=== PATIENT | male | born 1940 | race Caucasian/White ===

== ENCOUNTER 2017-08-11 18:36 | Inpatient (IN) | payer MEDICARE, BC ==
[~2017-08-11] VITALS: Ht 182.9 cm; Wt 77.7 kg
--- NOTE | ~2017-08-11 | HP ---
History And Physical [place] [id number] [facility] [place]. [address] NAME: ALIVIA ALVARADO : 44 STATUS : ADM IN [facility]#: [id number] AGE: 76 ADM/REG DATE : 08/11/17 MR#: [id number] REPORT SERV DATE: 08/11/17 DICTATED BY: BRI BARRAZA DATE: 08/11/17 REPORT STATUS : Draft TRANSCRIBED BY: MODRafia DATE: 08/11/17 DATE OF ADMISSION: 08/11/2017 HISTORY OF PRESENT ILLNESS: The patient is very pleasant, 76-year-old male, who presented to [facility] Emergency Room with a chief complaint of abdominal pain, which started today around 12:30 p.m. The patient said it was sharp pain in the epigastric area and mid abdominal area with some radiation to the back. Pain was very severe. The patient had nausea and he had several episodes of vomiting. He denies any chest pain. No shortness of breath. No fever. No rash. No headaches. REVIEW OF SYSTEMS: All 14-point review of systems done and negative except what is stated in the history of present illness. Currently in the emergency room, he was given pain medications and IV fluids and his abdominal pain improved. PAST MEDICAL HISTORY: 1. Known for history of left-sided nephrectomy for history of kidney cancer in 2013. 2. Chronic kidney disease stage III with a baseline creatinine in the range of 1.4 to 1.8. 3. History of urinary bladder cancer, status post tumor removal in 2013 different than the kidney cancer. 4. History of left groin stent placement. 5. History of hypertension. 6. History of hypercholesterolemia. PAST SURGICAL HISTORY: Includes only left-sided nephrectomy and history of right groin stent. SOCIAL HISTORY: The patient quit smoking three years ago, used to smoke half pack a day. The patient sometimes uses beer for alcohol use, but not in excessive amount, and for last seven days, he did not have any alcohol. The patient denies any use of recreational drugs. The patient's is at the bedside. The patient was in the process of moving from [place] to [facility]. They were actually packing when his pancreatitis started. FAMILY HISTORY: His mother of a breast cancer and father of a brain tumor. ALLERGIES: THE PATIENT IS ALLERGIC AMOXICILLIN. HOME MEDICATIONS: Include Artificial Tears 0.3 mL ophthalmic drops as needed for dry eyes, aspirin 81 mg a day, Coenzyme Q 100 mg a day, fenofibrate 135 mg a day, Proscar 5 mg daily, pravastatin 20 mg daily, propranolol 80 mg p.o. b.i.d., spironolactone with HCTZ one tablet daily, Flomax 0.4 mg a day, and vitamin D 100 mg a day. PHYSICAL EXAMINATION: GENERAL: Well-nourished, well-developed male, not in acute distress, resting quietly. VITAL SIGNS: Blood pressure 118/64, temperature 98.4, heart rate 58, respiratory rate 18, History And Physical [address] [address] NAME: ALIVIA ALVARADO : 44 STATUS : ADM IN [facility]#: [id number] AGE: 76 ADM/REG DATE : 08/11/17 MR#: [id number] REPORT SERV DATE: 08/11/17 DICTATED BY: BRI BARRAZA DATE: 08/11/17 REPORT STATUS : Draft TRANSCRIBED BY: COLLEEN DATE: 08/11/17 and oxygen saturation 98 on room air. HEENT: Head atraumatic and normocephalic. Conjunctivae are clear. Pupils are equal and reactive to light and accommodation. Extraocular muscles are intact. NECK: Supple. Trachea is midline. No supraclavicular or cervical lymphadenopathy. LUNGS: Clear to auscultation bilaterally with slightly decreased respiratory effort. CARDIOVASCULAR SYSTEM: Regular rate and rhythm. Point of maximal impulse not displaced. ABDOMEN: Soft. There is tenderness to palpation in the epigastric area. There is no guarding. No rebound. EXTREMITIES: No clubbing, cyanosis, or edema. SKIN: Normal color, slightly decreased turgor. PSYCHIATRIC: Normal mood and affect. NEUROLOGIC: Awake, alert, and oriented in time, place, and person. Muscle strength is 5/5 bilaterally in upper and lower extremities. LABORATORY RESULTS: White count 14.1, hemoglobin 15.7, hematocrit 46.3, and platelet count 219. Sodium 139, potassium 4.3, chloride 106, carbon dioxide 22, BUN 28, creatinine 1.6, blood sugar 118, calcium 9.6, total bilirubin 1.2, alkaline phosphatase 43, ALT is 48, AST 60, and lipase 69845. Troponin less than 0.02. Urinalysis did not show any evidence of urinary tract infection. Lactate 1.1. CT of abdomen and pelvis without contrast, which was done in the emergency room showed acute on chronic pancreatitis with peripancreatic edema around the head, neck, and body. No organized peripancreatic fluid collection, status post left nephrectomy. No suspicious soft tissue in the resection bed. Mildly prominent peripancreatic lymph nodes, likely reactive. Normal appendix. Mild count colonic diverticulosis without evidence of diverticulitis. ASSESSMENT: This is a very pleasant, 76-year-old male with a past medical history of kidney cancer, status post left nephrectomy, chronic kidney disease, history of benign prostatic hypertrophy who presented with: 1. Acute pancreatitis. 2. Chronic kidney disease. 3. Mild sinus bradycardia with a rate of 45 on beta-felisha. PLAN: 1. We will admit the patient to cardiac telemetry bed for his acute pancreatitis. We will provide the patient with good IV fluid hydration to provide good perfusion to the pancreas as well as we will keep the patient on clear liquid diet and give also good pain control and reasonable nausea control as well, put the patient on Protonix IV. In the same time, we will check the patient's fasting lipid profile, and we will also order ultrasound of the gallbladder and the pancreas as well as I will consult Gastroenterology for further evaluation of the patient's pancreatitis and to see what could cause the patient's pancreatitis. My partner, hospitalist, also may consider MRI on the pancreas after ultrasound will be done. 2. Chronic kidney disease, stage III with the creatinine being at the baseline. The patient will be given IV fluid hydration. 3. The patient also has mild sinus bradycardia with a heart rate of 45. He is on beta felisha, propranolol 80 mg twice a day. We will hold his propranolol and we will hold his antihypertensive medications as well. We will monitor closely his blood pressure. History And Physical [address] [place]. [address] NAME: ALIVIA ALVARADO : 44 STATUS : ADM IN [facility]#: [id number] AGE: 76 ADM/REG DATE : 08/11/17 MR#: [id number] REPORT SERV DATE: 08/11/17 DICTATED BY: BRI BARRAZA DATE: 08/11/17 REPORT STATUS : Draft TRANSCRIBED BY: COLLEEN DATE: 08/11/17 I will write for hydralazine as needed if systolic blood pressure will become elevated. 4. Leukocytosis. I think this is most likely a reactive leukocytosis secondary to pancreatitis. We will cover the patient with antibiotics, Levaquin and Flagyl. Everything was discussed with the patient and family. My partner will see this patient starting tomorrow morning as well as line mover, Dr. Vivas, on-call is consulted. Also, I ordered a chest x-ray as a baseline chest x-ray on the patient with leukocytosis. My partner to check the chest x-ray results. /COLLEEN Bri Barraza M.D. / [id number] CC: Marilu Devine M.D.
--- NOTE | ~2017-08-11 | DS ---
Discharge Summary [facility] [address] [place]. [address] NAME: ALIVIA ALVARADO : 44 STATUS : ADM IN [facility]#: [id number] AGE: 76 ADM/REG DATE : 08/11/17 MR#: [id number] REPORT SERV DATE: 08/18/17 DICTATED BY: KALEB WELLER DATE: 08/18/17 REPORT STATUS : Draft TRANSCRIBED BY: MODL DATE: 08/18/17 ADMISSION DATE: 08/11/2017 DISCHARGE DATE: FINAL DIAGNOSES: 1. Acute pancreatitis, improving. 2. Chronic kidney disease 2 with solitary kidney. 3. Peripheral arterial disease with left groin stent. 4. Hypertension. 5. Status post bradycardia. 6. Back pain. 7. History of bladder cancer. 8. History of left nephrectomy secondary to renal cancer. 9. Status post hypokalemia. DIAGNOSTIC EXAMS: CAT scan of the abdomen and pelvis showing acute on chronic pancreatitis with peripancreatic edema around the head, neck, and body. No organized peripancreatic fluid collection, status post nephrectomy. No suspicious soft tissues in the resection bed. Chest x-ray, mild lateral left basilar atelectasis, gallbladder ascites, slight prominence of the pancreatic duct. The gallbladder is normal in appearance and there is no evidence of biliary duct dilatation. CAT scan of the abdomen and pelvis showing increased peripancreatic inflammation compared to 08/11/2017 consistent with pancreatitis. No associated fluid collection. There are pancreatic calcifications consistent with prior chronic pancreatitis, small amount of ascites, bilateral pleural fluid and bibasilar atelectasis, possible sludge within the gallbladder, left nephrectomy, renal cysts including hyperdense cyst similar to compared with 08/11/2017 and calcific atherosclerosis. HOSPITAL COURSE: Please refer to the H and P done by Dr. Soto dated on 08/11/2017. Briefly, this is a 76-year-old male who came in with abdominal pain. The patient's pain is in the mid abdominal area going to the back with nausea and vomiting. The patient then went to the emergency room and a CAT scan shows that he has acute on chronic pancreatitis. The patient denied any previous episodes of pancreatitis and we checked his triglycerides and gallbladder with the above findings. The patient was initially started off on antibiotics; however, the blood culture and urinalysis were negative. The initial CAT scan did not show any abscesses or necrosis. The patient has elevated white count which peaked at 18 and it is trending downward, on discharge it is 13. He also has an elevated procalcitonin when he came in, which is compatible to an acute pancreatitis as well, it went down to 1.3 from 3.4. The patient had a low-grade fever, we repeated the CAT scan which shows the above findings. Again, it did not show any abscesses, fluid collections or necrosis. Meanwhile, clinically he was improving. He was able to eat without nausea and vomiting. There was decrease in need in the pain medication as he has not taken one in the last 24 hours, and the lipase went [place] from [address] to 944 with amylase from 633 down to 79. The patient was complaining of back pain. I think this is a combination of both pancreatitis and his musculoskeletal. Discharge Summary [address] [address] NAME: ALIVIA ALVARADO : 44 STATUS : ADM IN [facility]#: [id number] AGE: 76 ADM/REG DATE : 08/11/17 MR#: [id number] REPORT SERV DATE: 08/18/17 DICTATED BY: KALEB WELLER DATE: 08/18/17 REPORT STATUS : Draft TRANSCRIBED BY: COLLEEN DATE: 08/18/17 We tried him on Flexeril and that seems to help the most with his back pain. The patient will now be discharged with the above diagnosis. He will follow up with his PCP, Shaquille Villasenor, or his new PCP in [place], [place]. The patient said that he also has his own oncologist which he needs to follow up to. The patient was recommended to eat more of a high-fiber diet, not much of fat for now and slowly increase his diet as tolerated. He is tolerating a soft low residue low-fat diet at present. DISCHARGE MEDICATIONS: He will be on the following medications: 1. Aspirin 81 mg a day. 2. Coenzyme Q10 of 100 mg at bedtime. 3. Proscar 5 mg a day. 4. Inderal down to 40 mg twice a day secondary to his bradycardia. 5. Flomax 0.4 mg a day. 6. He will be off the Aldactazide for now. 7. Pravachol 20 mg at bedtime. 8. Trilipix 135 mg at bedtime. 9. Vitamin B12 one tablet a day. 10.Artificial Tears. I will give a prescription for Flexeril 5 mg p.o. t.i.d. p.r.n. muscle pain and Lortab 7.5/325 mg p.o. t.i.d. p.r.n. pain. This has been explained to the patient. TIME SPENT: 40 minutes. PATTI/COLLEEN Kaleb Weller M.D. / [id number] CC: Marilu Barreto M.D.
[~2017-08-11 18:36] MED LIST: ALDACTAZID25 MG/25 M PO; ASAB PO; COQ-10200 MG OR; DSS PO; FLOMAX4 PO; I40 PO; PCET PO; TRILIPIX135 MG PO; VIT B 100 PO; VYTORIN 10/10 T1 TAB PO
[2017-08-11 19:42] LABS: BASOPHILS 0.1 %; BASOPHILS ABSOLUTE 0.02 10/3/uL (0.0-0.16); EOSINOPHILS 0.5 %; EOSINOPHILS ABSOLUTE 0.07 10/3/uL (0.0-0.53); HEMATOCRIT 46.3 % (40.0-51.0); HEMOGLOBIN 15.7 g/dL (13.6-17.8); IMMATURE GRANULOCYTES 0.3 %; IMMATURE GRANULOCYTES ABSOLUTE 0.04 10/3/uL (0.0-0.11); LYMPHOCYTES 7.1 %; MANUAL DIFF NO %; MEAN CORPUS HGB CONC 33.9 g/dL (32.0-36.0); MEAN CORPUSCULAR HEMOGLOB 32.4 pg (26.0-34.0); MEAN CORPUSCULAR VOLUME 95.5 fL (80-100); MONOCYTES 2.8 %; NEUTROPHILS 89.2 %; NEUTROPHILS ABSOLUTE 12.56 10/3/uL (2.02-8.40); PLATELET COUNT 219 10/3/uL (150-400); RBC DISTRIBUTION WIDTH 13.2 % (12.0-16.0); RED CELL COUNT 4.85 10/6/uL (4.7-6.1); WHITE BLOOD CELLS 14.1 10/3/uL (4.5-10.5)
[2017-08-11 20:00] LABS: A/G RATIO 1.2 (0.7-1.9); ALBUMIN 4.2 G/DL (3.5-5.0); CHLORIDE, SERUM 106 MMOL/L (96-112); CO2 (CARBON DIOXIDE) 22 MMOL/L (24-34); GFR AFRICAN AMERICAN 48 ML/MIN (>=60); GFR NON AFRICAN AMERICAN 42 ML/MIN (>=60); GLOBULIN 3.6 G/DL (2.5-4.1); GLUCOSE, SERUM 118 MG/DL (60-99); LACTATE 1.1 MMOL/L (0.3-2.4); SGPT(ALT) 48 U/L (5-65); SODIUM, SERUM 139 MMOL/L (135-148); TOTAL PROTEIN 7.8 G/DL (6.0-8.5); TROPONIN I <0.02 NG/ML (<0.05)
[2017-08-11 20:01] LABS: ALKALINE PHOSPHATASE 43 U/L (45-117); BUN (BLOOD UREA NITROGEN) 28 MG/DL (6-23); CALCIUM, SERUM 9.6 MG/DL (8.5-10.4); POTASSIUM, SERUM 4.3 MMOL/L (3.5-5.3); TOTAL BILIRUBIN 1.2 MG/DL (0-1.2)
[2017-08-11 20:02] LABS: SGOT(AST) 60 U/L (5-40)
[2017-08-11 20:59] LABS: ASCORBIC ACID (UR NOT ORDER) NEG (NEG); BILIRUBIN, URINE NEGATIVE (NEG); ER URINALYSIS TAT 0 Hrs 11 Mins; KETONE, URINE TRACE MG/DL (NEG); LEUKOCYTE ESTERASE(NOT OR NEG (NEG); NITRITE (URINE) NEG (NEG); WBC (NOT ORDERED) (RFLEX) 1 (0-5)
[2017-08-11] MEDS ORDERED: ALDACTAZID25 MG/25 M PO (21:00)
[2017-08-11] MEDS ORDERED: PROPECIA1 MG (21:00)
[2017-08-11] MEDS ORDERED: FLOMAX4 PO (21:01)
[2017-08-11] MEDS ORDERED: INDE80 PO (21:01)
[2017-08-11] MEDS ORDERED: PRAVAC PO (21:01)
[2017-08-11] MEDS ORDERED: TRILIPIX135 MG PO (21:01)
[2017-08-11] MEDS ORDERED: ASAB PO (21:02)
[2017-08-11] MEDS ORDERED: REFRESH OPH SO0.3 ML OPH (21:02)
[2017-08-11] MEDS ORDERED: CO Q-10100 MG PO (21:02)
[2017-08-11] MEDS ORDERED: VITAMIN B 100 PO (21:02)
[2017-08-11] MEDS ORDERED: PROSCAR5 PO (21:04)
[2017-08-12 05:53] LABS: BASOPHILS 0.1 %; BASOPHILS ABSOLUTE 0.01 10/3/uL (0.0-0.16); EOSINOPHILS 0.1 %; EOSINOPHILS ABSOLUTE 0.01 10/3/uL (0.0-0.53); HEMOGLOBIN 14.2 g/dL (13.6-17.8); IMMATURE GRANULOCYTES 0.2 %; IMMATURE GRANULOCYTES ABSOLUTE 0.03 10/3/uL (0.0-0.11); LYMPHOCYTES 5.3 %; LYMPHOCYTES ABSOLUTE 0.77 10/3/uL (0.67-4.30); MEAN CORPUS HGB CONC 34.3 g/dL (32.0-36.0); MEAN CORPUSCULAR HEMOGLOB 32.5 pg (26.0-34.0); MEAN CORPUSCULAR VOLUME 94.7 fL (80-100); MEAN PLATELET VOLUME 11.7 fL (9.2-13.0); MONOCYTES 4.9 %; MONOCYTES ABSOLUTE 0.71 10/3/uL (0.21-1.20); NEUTROPHILS 89.4 %; NEUTROPHILS ABSOLUTE 13.02 10/3/uL (2.02-8.40); PLATELET COUNT 190 10/3/uL (150-400); RBC DISTRIBUTION WIDTH 13.1 % (12.0-16.0); RED CELL COUNT 4.37 10/6/uL (4.7-6.1); WHITE BLOOD CELLS 14.6 10/3/uL (4.5-10.5)
[2017-08-12 06:04] LABS: HEMATOCRIT 41.4 % (40.0-51.0); MANUAL DIFF NO %
[2017-08-12 06:06] LABS: INTERNATIONAL NORMAL RATI 1.1 UNITS (-); PROTIME (NOT ORD) 14.1 SEC (12.0-14.5)
[2017-08-12 06:07] LABS: A/G RATIO 1.2 (0.7-1.9); ALBUMIN 3.6 G/DL (3.5-5.0); ALKALINE PHOSPHATASE 35 U/L (45-117); BUN (BLOOD UREA NITROGEN) 25 MG/DL (6-23); CHLORIDE, SERUM 106 MMOL/L (96-112); CHOLESTEROL 139 MG/DL (< 200); CO2 (CARBON DIOXIDE) 22 MMOL/L (24-34); CREATININE 1.26 MG/DL (0.70-1.30); GFR AFRICAN AMERICAN 65 ML/MIN (>=60); GFR NON AFRICAN AMERICAN 56 ML/MIN (>=60); GLUCOSE, SERUM 115 MG/DL (60-99); HDL CHOLESTEROL 47 MG/DL (> 39); LDL CHOLESTEROL 78 MG/DL (< 130); NON-HDL CHOLESTEROL 92 MG/DL (< 160); SGOT(AST) 29 U/L (5-40); SGPT(ALT) 38 U/L (5-65); SODIUM, SERUM 141 MMOL/L (135-148); TOTAL BILIRUBIN 0.9 MG/DL (0-1.2); TOTAL PROTEIN 6.6 G/DL (6.0-8.5)
[2017-08-12 06:09] LABS: CALCIUM, SERUM 8.5 MG/DL (8.5-10.4); POTASSIUM, SERUM 3.3 MMOL/L (3.5-5.3); TRIGLYCERIDE 73 MG/DL (< 150)
[2017-08-12 06:10] LABS: PARTIAL THROMBO TIME 22.8 SEC (22.5-37.2)
[2017-08-13 04:13] LABS: BASOPHILS 0.1 %; BASOPHILS ABSOLUTE 0.01 10/3/uL (0.0-0.16); EOSINOPHILS 0 %; HEMATOCRIT 41.4 % (40.0-51.0); HEMOGLOBIN 14.2 g/dL (13.6-17.8); IMMATURE GRANULOCYTES 0.4 %; IMMATURE GRANULOCYTES ABSOLUTE 0.07 10/3/uL (0.0-0.11); LYMPHOCYTES 4.1 %; LYMPHOCYTES ABSOLUTE 0.74 10/3/uL (0.67-4.30); MEAN CORPUS HGB CONC 34.3 g/dL (32.0-36.0); MEAN CORPUSCULAR HEMOGLOB 32.4 pg (26.0-34.0); MEAN CORPUSCULAR VOLUME 94.5 fL (80-100); MEAN PLATELET VOLUME 12.1 fL (9.2-13.0); MONOCYTES 5.2 %; MONOCYTES ABSOLUTE 0.94 10/3/uL (0.21-1.20); NEUTROPHILS 90.2 %; NEUTROPHILS ABSOLUTE 16.36 10/3/uL (2.02-8.40); PLATELET COUNT 177 10/3/uL (150-400); RBC DISTRIBUTION WIDTH 13.3 % (12.0-16.0); RED CELL COUNT 4.38 10/6/uL (4.7-6.1); WHITE BLOOD CELLS 18.1 10/3/uL (4.5-10.5)
[2017-08-13 04:14] LABS: MANUAL DIFF NO %
[2017-08-13 04:28] LABS: CALCIUM, SERUM 8.3 MG/DL (8.5-10.4); CHLORIDE, SERUM 104 MMOL/L (96-112); CO2 (CARBON DIOXIDE) 24 MMOL/L (24-34); CREATININE 1.35 MG/DL (0.70-1.30); GFR AFRICAN AMERICAN 60 ML/MIN (>=60); GFR NON AFRICAN AMERICAN 51 ML/MIN (>=60); GLUCOSE, SERUM 99 MG/DL (60-99); POTASSIUM, SERUM 3.3 MMOL/L (3.5-5.3); SODIUM, SERUM 138 MMOL/L (135-148)
[2017-08-13 04:29] LABS: BUN (BLOOD UREA NITROGEN) 18 MG/DL (6-23)
[2017-08-14 06:19] LABS: BASOPHILS 0 %; EOSINOPHILS 0 %; HEMATOCRIT 36.5 % (40.0-51.0); HEMOGLOBIN 12.2 g/dL (13.6-17.8); IMMATURE GRANULOCYTES 0.5 %; IMMATURE GRANULOCYTES ABSOLUTE 0.09 10/3/uL (0.0-0.11); LYMPHOCYTES 3.9 %; LYMPHOCYTES ABSOLUTE 0.72 10/3/uL (0.67-4.30); MANUAL DIFF NO %; MEAN CORPUS HGB CONC 33.4 g/dL (32.0-36.0); MEAN CORPUSCULAR HEMOGLOB 31.8 pg (26.0-34.0); MEAN CORPUSCULAR VOLUME 95.1 fL (80-100); MONOCYTES 7.4 %; MONOCYTES ABSOLUTE 1.36 10/3/uL (0.21-1.20); NEUTROPHILS 88.2 %; NEUTROPHILS ABSOLUTE 16.21 10/3/uL (2.02-8.40); PLATELET COUNT 158 10/3/uL (150-400); RBC DISTRIBUTION WIDTH 13.6 % (12.0-16.0); RED CELL COUNT 3.84 10/6/uL (4.7-6.1); WHITE BLOOD CELLS 18.4 10/3/uL (4.5-10.5)
[2017-08-14 06:31] LABS: BUN (BLOOD UREA NITROGEN) 18 MG/DL (6-23); CALCIUM, SERUM 8.2 MG/DL (8.5-10.4); CHLORIDE, SERUM 106 MMOL/L (96-112); CO2 (CARBON DIOXIDE) 22 MMOL/L (24-34); CREATININE 1.28 MG/DL (0.70-1.30); GFR AFRICAN AMERICAN 63 ML/MIN (>=60); GFR NON AFRICAN AMERICAN 55 ML/MIN (>=60); GLUCOSE, SERUM 112 MG/DL (60-99); POTASSIUM, SERUM 3.7 MMOL/L (3.5-5.3); SODIUM, SERUM 138 MMOL/L (135-148)
[2017-08-15 06:38] LABS: BASOPHILS 0.1 %; BASOPHILS ABSOLUTE 0.01 10/3/uL (0.0-0.16); EOSINOPHILS 0.1 %; EOSINOPHILS ABSOLUTE 0.02 10/3/uL (0.0-0.53); HEMATOCRIT 35.4 % (40.0-51.0); IMMATURE GRANULOCYTES 0.5 %; IMMATURE GRANULOCYTES ABSOLUTE 0.07 10/3/uL (0.0-0.11); LYMPHOCYTES ABSOLUTE 0.86 10/3/uL (0.67-4.30); MEAN CORPUS HGB CONC 33.9 g/dL (32.0-36.0); MEAN CORPUSCULAR HEMOGLOB 31.9 pg (26.0-34.0); MEAN CORPUSCULAR VOLUME 94.1 fL (80-100); MEAN PLATELET VOLUME 12.1 fL (9.2-13.0); MONOCYTES 5.7 %; MONOCYTES ABSOLUTE 0.82 10/3/uL (0.21-1.20); NEUTROPHILS 87.6 %; NEUTROPHILS ABSOLUTE 12.61 10/3/uL (2.02-8.40); PLATELET COUNT 178 10/3/uL (150-400); RBC DISTRIBUTION WIDTH 13.4 % (12.0-16.0); RED CELL COUNT 3.76 10/6/uL (4.7-6.1); WHITE BLOOD CELLS 14.4 10/3/uL (4.5-10.5)
[2017-08-15 06:39] LABS: MANUAL DIFF NO %
[2017-08-15 06:42] LABS: BUN (BLOOD UREA NITROGEN) 19 MG/DL (6-23); CALCIUM, SERUM 8.4 MG/DL (8.5-10.4); CHLORIDE, SERUM 105 MMOL/L (96-112); CO2 (CARBON DIOXIDE) 21 MMOL/L (24-34); CREATININE 1.05 MG/DL (0.70-1.30); GFR AFRICAN AMERICAN 81 ML/MIN (>=60); GFR NON AFRICAN AMERICAN 70 ML/MIN (>=60); GLUCOSE, SERUM 107 MG/DL (60-99); POTASSIUM, SERUM 3.6 MMOL/L (3.5-5.3); SODIUM, SERUM 134 MMOL/L (135-148)
[2017-08-16 06:03] LABS: BUN (BLOOD UREA NITROGEN) 16 MG/DL (6-23); CALCIUM, SERUM 8.5 MG/DL (8.5-10.4); CHLORIDE, SERUM 106 MMOL/L (96-112); CO2 (CARBON DIOXIDE) 20 MMOL/L (24-34); GFR AFRICAN AMERICAN 86 ML/MIN (>=60); GFR NON AFRICAN AMERICAN 74 ML/MIN (>=60); GLUCOSE, SERUM 102 MG/DL (60-99); POTASSIUM, SERUM 3.9 MMOL/L (3.5-5.3); SODIUM, SERUM 136 MMOL/L (135-148)
[2017-08-16 06:08] LABS: BASOPHILS 0.1 %; BASOPHILS ABSOLUTE 0.01 10/3/uL (0.0-0.16); EOSINOPHILS 0.3 %; EOSINOPHILS ABSOLUTE 0.04 10/3/uL (0.0-0.53); HEMATOCRIT 35.8 % (40.0-51.0); HEMOGLOBIN 12.3 g/dL (13.6-17.8); IMMATURE GRANULOCYTES 0.7 %; IMMATURE GRANULOCYTES ABSOLUTE 0.11 10/3/uL (0.0-0.11); LYMPHOCYTES 7.4 %; LYMPHOCYTES ABSOLUTE 1.11 10/3/uL (0.67-4.30); MEAN CORPUS HGB CONC 34.4 g/dL (32.0-36.0); MEAN CORPUSCULAR HEMOGLOB 31.9 pg (26.0-34.0); MEAN PLATELET VOLUME 11.7 fL (9.2-13.0); MONOCYTES ABSOLUTE 1.05 10/3/uL (0.21-1.20); NEUTROPHILS 84.5 %; NEUTROPHILS ABSOLUTE 12.77 10/3/uL (2.02-8.40); PLATELET COUNT 215 10/3/uL (150-400); RBC DISTRIBUTION WIDTH 13.7 % (12.0-16.0); RED CELL COUNT 3.85 10/6/uL (4.7-6.1); WHITE BLOOD CELLS 15.1 10/3/uL (4.5-10.5)
[2017-08-16 06:09] LABS: MANUAL DIFF NO %
[2017-08-17 06:49] LABS: BASOPHILS 0.1 %; BASOPHILS ABSOLUTE 0.01 10/3/uL (0.0-0.16); EOSINOPHILS 0.4 %; EOSINOPHILS ABSOLUTE 0.07 10/3/uL (0.0-0.53); HEMOGLOBIN 12.1 g/dL (13.6-17.8); IMMATURE GRANULOCYTES 1.3 %; IMMATURE GRANULOCYTES ABSOLUTE 0.21 10/3/uL (0.0-0.11); LYMPHOCYTES 8.7 %; MEAN CORPUS HGB CONC 33.6 g/dL (32.0-36.0); MEAN CORPUSCULAR HEMOGLOB 31.3 pg (26.0-34.0); MEAN PLATELET VOLUME 11.4 fL (9.2-13.0); MONOCYTES 7.6 %; MONOCYTES ABSOLUTE 1.22 10/3/uL (0.21-1.20); NEUTROPHILS 81.9 %; NEUTROPHILS ABSOLUTE 13.14 10/3/uL (2.02-8.40); PLATELET COUNT 237 10/3/uL (150-400); RBC DISTRIBUTION WIDTH 13.7 % (12.0-16.0); RED CELL COUNT 3.87 10/6/uL (4.7-6.1); WHITE BLOOD CELLS 16.1 10/3/uL (4.5-10.5)
[2017-08-17 06:51] LABS: MANUAL DIFF NO %
[2017-08-17 07:00] LABS: BUN (BLOOD UREA NITROGEN) 14 MG/DL (6-23); CALCIUM, SERUM 8.1 MG/DL (8.5-10.4); CHLORIDE, SERUM 104 MMOL/L (96-112); CO2 (CARBON DIOXIDE) 21 MMOL/L (24-34); GFR AFRICAN AMERICAN 76 ML/MIN (>=60); GFR NON AFRICAN AMERICAN 66 ML/MIN (>=60); GLUCOSE, SERUM 92 MG/DL (60-99); POTASSIUM, SERUM 3.9 MMOL/L (3.5-5.3); SODIUM, SERUM 133 MMOL/L (135-148)
[2017-08-17 07:21] LABS: PROCALCITONIN 1.32 ng/mL (<0.5)
[2017-08-17 11:03] LABS: ASCORBIC ACID (UR NOT ORDER) NEG (NEG); BILIRUBIN, URINE NEGATIVE (NEG); KETONE, URINE NEGATIVE (NEG); LEUKOCYTE ESTERASE(NOT OR NEG (NEG); WBC (NOT ORDERED) (RFLEX) 2 (0-5)
[2017-08-18 04:53] LABS: BASOPHILS 0.1 %; BASOPHILS ABSOLUTE 0.01 10/3/uL (0.0-0.16); EOSINOPHILS 0.7 %; EOSINOPHILS ABSOLUTE 0.09 10/3/uL (0.0-0.53); HEMATOCRIT 34.4 % (40.0-51.0); HEMOGLOBIN 11.7 g/dL (13.6-17.8); IMMATURE GRANULOCYTES 3.2 %; IMMATURE GRANULOCYTES ABSOLUTE 0.44 10/3/uL (0.0-0.11); LYMPHOCYTES 11.5 %; LYMPHOCYTES ABSOLUTE 1.59 10/3/uL (0.67-4.30); MEAN CORPUSCULAR HEMOGLOB 31.6 pg (26.0-34.0); MEAN PLATELET VOLUME 11.3 fL (9.2-13.0); MONOCYTES 8.9 %; MONOCYTES ABSOLUTE 1.23 10/3/uL (0.21-1.20); NEUTROPHILS 75.6 %; NEUTROPHILS ABSOLUTE 10.41 10/3/uL (2.02-8.40); PLATELET COUNT 233 10/3/uL (150-400); RBC DISTRIBUTION WIDTH 13.7 % (12.0-16.0); WHITE BLOOD CELLS 13.8 10/3/uL (4.5-10.5)
[2017-08-18 04:55] LABS: MANUAL DIFF NO %
[2017-08-18 05:09] LABS: BUN (BLOOD UREA NITROGEN) 16 MG/DL (6-23); CALCIUM, SERUM 8.4 MG/DL (8.5-10.4); CHLORIDE, SERUM 102 MMOL/L (96-112); CO2 (CARBON DIOXIDE) 21 MMOL/L (24-34); GFR AFRICAN AMERICAN 86 ML/MIN (>=60); GFR NON AFRICAN AMERICAN 74 ML/MIN (>=60); GLUCOSE, SERUM 92 MG/DL (60-99); POTASSIUM, SERUM 3.7 MMOL/L (3.5-5.3); SODIUM, SERUM 132 MMOL/L (135-148)
[2017-08-18] MEDS ORDERED: FLEX PO (09:01)
[2017-08-18] MEDS ORDERED: NORCO1 TA2 PO (09:02)
== END 2017-08-18 11:00 | disposition home or self-care (01) | DRG 439 ==
LOC: ER 18:36 → 5NO 22:20 → ENPENDDIS 22:20 → 5NO 08-18 11:00
PROVIDERS: Hospitalist; Internal Medicine; Specialist
DX: K85.90 Acute pancreatitis without necrosis or infection, unspecified (principal); N17.9 Acute kidney failure, unspecified; Z85.51 Personal history of malignant neoplasm of bladder; E78.00 Pure hypercholesterolemia, unspecified; Z87.891 Personal history of nicotine dependence; N18.2 Chronic kidney disease, stage 2 (mild); I12.9 Hypertensive chronic kidney disease with stage 1 through stage 4 chronic kidney disease, or unspecified chronic kidney disease; I73.9 Peripheral vascular disease, unspecified; Z95.828 Presence of other vascular implants and grafts; K86.1 Other chronic pancreatitis
CPT/HCPCS: 71010; 74176; 76705; 80048; 80053; 80061; 81001; 82150; 83036; 83605; 83690; 83735; 84132; 84145; 84484; 85025; 85610; 85730; 87040; 93005; 96374; 96375; 99285; A9270-GY; C9113; J0360; J1956; J2405; J3010; J3475; J3480